=== PATIENT | female | born 1940 | race Caucasian/White ===

== ENCOUNTER 2021-09-21 15:46 | Inpatient (IN) | payer MEDICARE ==
[~2021-09-21] VITALS: Ht 167.6 cm; Wt 83.9 kg
[~2021-09-21 15:46] MED LIST: FUROSEMIDE20 MG PO
[2021-09-21 16:52] LABS: HEMOGLOBIN 11.5 gm/dl (12.3-15.3); RED BLOOD COUNT 4.19 M/UL (4.00-5.10); WHITE BLOOD COUNT 9.3 K/UL (4.5-11.0)
[2021-09-21 17:33] LABS: BUN/CREATININE RATIO 24 (0-10)
[2021-09-21] MEDS ORDERED: FUROSEMIDE20 MG PO (23:23)
[2021-09-22] MEDS ORDERED: LOSARTAN-HCTZ1 EAC2 PO (09:56)
[2021-09-22] MEDS ORDERED: DULOXETINE HCL60 MG PO (09:56)
[2021-09-22] MEDS ORDERED: MELOXICAM7.5 MG PO (09:57)
[2021-09-22] MEDS ORDERED: PREGABALIN100 MG PO (09:58)
[2021-09-22] MEDS ORDERED: ANASTROZOLE1 MG PO (09:58)
[2021-09-22] MEDS ORDERED: VITAMIN D3125 MCG PO (09:59)
[2021-09-23 07:24] LABS: HEMOGLOBIN 11.3 gm/dl (12.3-15.3); RED BLOOD COUNT 4.09 M/UL (4.00-5.10); WHITE BLOOD COUNT 8.7 K/UL (4.5-11.0)
[2021-09-25 02:07] LABS: HEMOGLOBIN 11.6 gm/dl (12.3-15.3); RED BLOOD COUNT 4.27 M/UL (4.00-5.10); WHITE BLOOD COUNT 9.7 K/UL (4.5-11.0)
[2021-09-26] MEDS ORDERED: METOPROLOL SUC100 MG PO (11:23)
[2021-09-26] MEDS ORDERED: ASPIRIN EC81 MG PO (11:23)
[2021-09-26] MEDS ORDERED: LASIX40 MG PO (11:23)
[2021-09-26] MEDS ORDERED: ALDACTONE 25MG25 MG PO (11:23)
[2021-09-26] MEDS ORDERED: ENTRESTO 24 MG1 EACH PO (11:23)
== END 2021-09-26 14:21 | disposition home or self-care (01) | DRG 286 ==
LOC: ER1 15:46 → CDU 20:10 → CCU 20:10 → CDU 22:58 → CCU 22:58 → CDU 22:58 → PROG CARE 09-23 18:16
PROVIDERS: Internal Medicine Cardiovascular Disease; Internal Medicine Infectious Disease; Physician Assistant; ADMIT Internal Medicine
PROC: B24BZZZ Ultrasonography of Heart with Aorta (ICD-10-PCS; 2021-09-22)
PROC: 4A023N7 Measurement of Cardiac Sampling and Pressure, Left Heart, Percutaneous Approach (ICD-10-PCS; principal; 2021-09-25)
PROC: B2111ZZ Fluoroscopy of Multiple Coronary Arteries using Low Osmolar Contrast (ICD-10-PCS; 2021-09-25)
DX: I11.0 Hypertensive heart disease with heart failure (principal); I50.23 Acute on chronic systolic (congestive) heart failure; I47.1 Supraventricular tachycardia; Z20.822 Contact with and (suspected) exposure to COVID-19; I42.8 Other cardiomyopathies; E87.6 Hypokalemia; I44.7 Left bundle-branch block, unspecified; I25.10 Atherosclerotic heart disease of native coronary artery without angina pectoris; F32.A Depression, unspecified; F41.9 Anxiety disorder, unspecified; G89.29 Other chronic pain; I07.1 Rheumatic tricuspid insufficiency; Z96.651 Presence of right artificial knee joint; M54.9 Dorsalgia, unspecified; G62.9 Polyneuropathy, unspecified; I08.1 Rheumatic disorders of both mitral and tricuspid valves; I27.20 Pulmonary hypertension, unspecified; Z85.3 Personal history of malignant neoplasm of breast; Z90.49 Acquired absence of other specified parts of digestive tract; Z98.51 Tubal ligation status; Z98.890 Other specified postprocedural states; Z82.49 Family history of ischemic heart disease and other diseases of the circulatory system; Z88.0 Allergy status to penicillin; Z99.3 Dependence on wheelchair
CPT/HCPCS: ECHO; 36415; 71045; 80048; 80053; 80061; 82550; 82553; 82607; 82746; 83036; 83540; 83550; 83690; 83735; 83880; 84100; 84132; 84439; 84443; 84484; 84550; 85025; 85045; 85610; 85730; 93005; 93306; 96374; 99152; 99153; 99285; C1769; C1887; C1894; J1644; J1940; J2250; J3010; J3480; J7040; Q9965; U0002